=== PATIENT | male | born 1960 | race Caucasian/White ===

== ENCOUNTER → 2022-05-03 | Outpatient (CLI) | payer OTHER, SELFPAY ==
[2022-05-03 09:57] LABS: Erythrocyte Sedimentation Rate 6 mm/hr (0-20)
[2022-05-03 10:02] LABS: Absolute Neutrophil Count 6.3 X10^3/uL (2.0-7.7); Basophil# 0.04 X10^3/uL; Basophil% 0.5 % (0-1); Eosinophil# 0.07 X10^3/uL; Eosinophils% 0.8 % (0-5); Hematocrit 45.1 % (40-54); Hemoglobin 15.9 g/dL (13.0-16.5); Lymphocyte % 18.7 % (19-41); Mean Corp Hgb Conc 35.3 g/dL (32-36); Mean Corpuscular Volume 87.9 fL (80-94); Monocyte# 0.47 X10^3/uL; Monocyte% 5.5 % (0-10); NRBC Flagged by Analyzer 0 % (0-5); Neutrophil # 6.33 X10^3/uL (2.7-7.7); Neutrophil % 73.9 % (47-70); Platelet Count 187 K/mm3 (150-450); RBC Distribution Width CV 12.9 % (11.6-14.6); RBC Distribution Width SD 41.3 fl (35.1-43.9); Red Blood Count 5.13 M/mm3 (4.6-6.2); White Blood Count 8.6 K/mm3 (4.4-11.0)
[2022-05-03 10:26] LABS: ALB/GLOB Ratio 1.2 RATIO (0.9-2.4); AST(SGOT) 50 U/L (15-37); Alanine Aminotransfer ALT/SGPT 82 U/L (16-61); Albumin, Serum 4.5 g/dL (3.2-5.0); Alkaline Phosphatase 113 U/L (45-117); Anion Gap 8 (5-15); BUN 12 mg/dL (7-18); BUN/Creat Ratio 9.2 RATIO (10-20); CRP 3.52 mg/L (0.0-3.0); Calcium,Total 9.9 mg/dL (8.5-10.1); Chloride 98 mmol/L (98-107); EST Glomerular Filtration Rate 59 mL/min (>60); Est Glom Filt Rate - Afr Amer 72 mL/min (>60); Ferritin 495 ng/mL (26-388); Globulin 3.9 g/dL (2.2-4.2); Glucose 192 mg/dL (74-106); LDH 174 U/L (87-241); Potassium 4.6 mmol/L (3.5-5.1); Protein, Total 8.4 g/dL (6.4-8.2); Sodium Level 135 mmol/L (136-145); Thyroid Stim Hormone (TSH) 1.94 uIU/mL (0.358-3.74)
[2022-05-04 15:08] LABS: Endomysial Antibody IgA Negative (Negative)
[2022-05-04 18:09] LABS: Immunoglobulin A 346 mg/dL (61-437); t-Transglutaminase IgA <2 U/mL (0-3)
[2022-05-05 07:08] LABS: Anti-Centromere B Ab <0.2 AI (0.0-0.9); Anti-Chromatin <0.2 AI (0.0-0.9); Anti-Jo <0.2 AI (0.0-0.9); Anti-Scleroderma-70 AB <0.2 AI (0.0-0.9); RNP Ab <0.2 AI (0.0-0.9); SJOGREN'S Anti-SS-A test < 0.2 AI (0.0-0.9); SJOGREN'S Anti-SS-B test < 0.2 AI (0.0-0.9); Smith Ab <0.2 AI (0.0-0.9)
[2022-05-05 08:58] LABS: Anti-dsDNA Ab 1 IU/mL (0-9)
[2022-05-14 04:06] LABS: Albumin 4.6 g/dL (2.9-4.4); Alpha-1-Globulins 0.1 g/dL (0.0-0.4); Alpha-2-Globulins 0.9 g/dL (0.4-1.0); Cytoplasmic Ab (C-ANCA) <1:20 titer (Neg:<1:20); Gamma Globulin 0.7 g/dL (0.4-1.8); Immunoglobulin A 352 mg/dL (61-437); Immunoglobulin G 593 mg/dL (603-1613); Immunoglobulin M 183 mg/dL (20-172); PROEL- TOTAL PROTEIN 7.6 g/dL (6.0-8.5)
[2022-05-14 15:15] LABS: EBV Acute VCA IgM < 36.0 U/mL (0.0-35.9); EBV-VCA IgG > 600.0 U/mL (0.0-17.9)
[2022-05-14 15:16] LABS: CMV Antibody IgG < 0.60 U/mL (0.00-0.59); Immunoglobulin E 6 IU/mL (6-495); Perinuclear Ab (P-ANCA) <1:20 titer (Neg:<1:20)
== END | disposition home or self-care (01) ==
PROVIDERS: PCP Internal Medicine; Referring Provider Internal Medicine Gastroenterology; Visit Provider Internal Medicine Gastroenterology
DX: R19.7 Diarrhea, unspecified (principal)
CPT/HCPCS: 36415; 80053; 82728; 82784; 82785; 83516; 83615; 84165; 84443; 85025; 85652; 86140; 86225; 86235; 86255; 86256; 86334; 86644; 86664; 86665

== ENCOUNTER → 2022-05-06 | Outpatient (CLI) | payer OTHER, SELFPAY ==
[2022-05-13 17:37] LABS: Pancreatic Elastase, Fecal < 50 (>200)
[2022-05-18 18:33] LABS: Calprotectin, Stool 55 ug/g (0-120); Fats, Neutral Normal (.); Fats, Total Increased (.)
== END | disposition home or self-care (01) ==
LOC: LABSPEC 14:56
PROVIDERS: PCP Internal Medicine; Visit Provider Internal Medicine Gastroenterology
DX: R19.7 Diarrhea, unspecified (principal); K58.9 Irritable bowel syndrome, unspecified
CPT/HCPCS: 82274; 82653; 82705; 83630; 83993; 87493; 87506

== ENCOUNTER → 2022-06-18 | Outpatient (CLI) | payer OTHER, SELFPAY ==
[2022-06-18 10:55] LABS: Microalbumin,Random Urine 27.8 mg/L (NO RANGE EST.); Microalbumin:Creatinine Ratio 9.5 mg/g CRE (<30 mg/g CRE)
[2022-06-18 11:11] LABS: Absolute Lymphocyte Count 1.79 X10^3/uL (0.83-4.51); Absolute Neutrophil Count 5.4 X10^3/uL (2.0-7.7); Basophil# 0.03 X10^3/uL; Basophil% 0.4 % (0-1); Eosinophil# 0.08 X10^3/uL; Hematocrit 41.7 % (40-54); Hemoglobin 14.1 g/dL (13.0-16.5); Lymphocyte # 1.79 X10^3/ul (0.83-4.51); Lymphocyte % 22.9 % (19-41); Mean Corp Hgb Conc 33.8 g/dL (32-36); Mean Corpuscular Hgb 30.1 pg (27.0-32.0); Mean Corpuscular Volume 89.1 fL (80-94); Mean Platelet Vol. 10.2 fl (6.2-12.0); Monocyte# 0.46 X10^3/uL; Monocyte% 5.9 % (0-10); NRBC Flagged by Analyzer 0 % (0-5); Neutrophil # 5.41 X10^3/uL (2.7-7.7); Neutrophil % 69.3 % (47-70); Platelet Count 179 K/mm3 (150-450); RBC Distribution Width CV 13.6 % (11.6-14.6); RBC Distribution Width SD 44.2 fl (35.1-43.9); Red Blood Count 4.68 M/mm3 (4.6-6.2); White Blood Count 7.8 K/mm3 (4.4-11.0)
[2022-06-18 11:36] LABS: Hemoglobin A1c 8.7 % (3.8-5.6)
[2022-06-18 11:41] LABS: ALB/GLOB Ratio 1.1 RATIO (0.9-2.4); AST(SGOT) 33 U/L (15-37); Alanine Aminotransfer ALT/SGPT 73 U/L (16-61); Albumin, Serum 3.8 g/dL (3.2-5.0); Alkaline Phosphatase 91 U/L (45-117); Anion Gap 6 (5-15); BUN 13 mg/dL (7-18); BUN/Creat Ratio 10.6 RATIO (10-20); Calcium,Total 8.5 mg/dL (8.5-10.1); Chloride 104 mmol/L (98-107); Cholesterol 148 mg/dL (200); Creatinine, Serum 1.23 mg/dL (0.70-1.30); EST Glomerular Filtration Rate 63 mL/min (>60); Est Glom Filt Rate - Afr Amer 77 mL/min (>60); Globulin 3.4 g/dL (2.2-4.2); Glucose 220 mg/dL (74-106); High Density Lipoprotein 51 mg/dL; Potassium 3.5 mmol/L (3.5-5.1); Protein, Total 7.2 g/dL (6.4-8.2); Sodium Level 136 mmol/L (136-145); Thyroid Stim Hormone (TSH) 1.38 uIU/mL (0.358-3.74); Triglycerides 112 mg/dL; Very Low Density Lipoprotein 22 mg/dL (5-40)
== END | disposition home or self-care (01) ==
LOC: LAB 10:19
PROVIDERS: PCP Internal Medicine; Referring Provider Internal Medicine; Visit Provider Internal Medicine
DX: E11.9 Type 2 diabetes mellitus without complications (principal); I10 Essential (primary) hypertension; E78.00 Pure hypercholesterolemia, unspecified; K42.9 Umbilical hernia without obstruction or gangrene; F32.A Depression, unspecified
CPT/HCPCS: 36415; 80053; 80061; 82043; 82570; 83036; 84443; 85025

== ENCOUNTER 2022-10-13 09:00 | Day surgery (SDC) | payer OTHER, SELFPAY ==
[2022-10-13] VITALS (7 sets, daily range): BP systolic 88–134; BP diastolic 67–91; PULSE 85–95; RESP 18; TEMP 36–36.6; O2SAT 96–98; BMI 25.0
[2022-10-13] MEDS: Lactated Ringers 1,000 ML 15 ML IV (09:41)
[2022-10-13 09:50] LABS: Bedside Glucose 143 mg/dL (74-106)
--- NOTE | 2022-10-13 09:57 | HP.PCM_ITS ---
History and Physical Date of Admission: 10/13/22 JULY YI, is a 61 M who presents to the office today for 3 month f/u diarrhea. Capsule endoscopy showed bile induced enteritis. He is now taking colestipol 1 gram bid, no longer has diarrhea (except sometimes when he eats [employer]). No abdominal pain now. He was also found to have exocrine pancreatic insufficiency with fecal elastase <50; PERT was too expensive. No nausea, vomiting, dysphagia. Occas heartburn, no prior EGD. No melena or hematochezia. 06/2022: hgb a1c 8.7, fecal pancreatic elastase <50, positive stool occult blood, panel suggestive of Crohn's July established with this clinic 05.03.22 with referral from PCP for evaluation of intermittent diarrhea with pelvic/lower abdominal cramping (relieved with BM) 1-2 days a week for the last three years and feels it is trigger by foods, though triggers are not consistent but do seem to be linked to higher fat foods. PMH DMII; cholecystectomy 11.06.20 complicated by perforated liver ([facility]); appendectomy 1986; hyperlipidemia. CT abd/pel 11.21.20 with irregular intrahepatic fluid collection consistent with intrahepatic abscess ill-defined fluid collection in gallbladder fossa with surrounding inflammation; splenomegaly; small duodenal diverticulum; moderate stool burden. Colonoscopy 05.08.21 with outside facility finding 3, 3-5mm tubular adenoma polyps and sigmoid diverticulosis. ROS Const Constitutional: Positive for fatigue ENT ENT: No difficulty swallowing Cardio Cardiology: Positive for leg pain with exertion Gastro GI: No abdominal pain, belching, bloating, change in bowel habits, change in stool character, coffee ground emesis, constipation, cramping, diarrhea, heartburn, difficulty swallowing, feeling full early, excessive flatus, incontinent of stools, Vomiting blood/hematemesis, Blood in stool, loose stools, Black,tarry stools, nausea/dyspepsia, pain with swallowing, vomiting or other Musc Musculoskeletal: Positive for abnormal gait, joint pain, muscle weakness, numbness, stiffness, tingling, Arthritis, restless legs, leg pain at night and leg pain with exertion Skin Skin: No yellowing of the eye or itchy eyes Neuro Neurology: Positive for abnormal gait, dizziness, numbness, tingling and restless legs Psych Psychiatric: No anxiety and No depression Endo Endocrine: Positive for fatigue Aller/Imm Allergy/Immunologic: No itchy eyes Kendall/Lymp Hematologic/Lymphatic: No easy bleeding or easy bruising Exam Const General: cooperative and comfortable Nutritional Appearance: average body habitus Orientation: alert, awake and oriented x3 GI Inspection: normal to inspection Palpation: soft, no hepatosplenomegaly, no masses and nontender Quality Reporting Tobacco Screening (CMS 138) Smoking Status: Never smoker Assessment and Plan Assessment and Plan (1) Diarrhea: ?Status:?Chronic ?Plan: 61 yr old male with chronic diarrhea. Capsule endoscopy showed bile induced enteritis, so he was prescribed colestipol 1 gram bid, he no longer has diarrhea or abdominal pain. Pancreatic enzymes were too expensive so no treatment for EPI. Because his stool was heme positive, and hx colon polyps, and poor prep, we will get colonoscopy as well as EGD. Hx heartburn. Lab panel suggestive of Crohn's. Office f/u 2 wks later. (2) Occult blood positive stool: ?Status:?Acute ?Plan: see above (3) Exocrine pancreatic insufficiency: ?Status:?Acute ?Plan: see above ? ? ? Medications: Discontinued uxrmck-gldswznm-ojjuhji 40,000-126,000- 168,000 unit (Zenpep) ?? Discontinued Reason:? Cost Prohibitive ?take 1-2 with snacks and 2-3 with meals? 720 caps 3RF ? ? I have examined the patient and the H&P has been reviewed. There are no clinical changes since date of exam.
--- NOTE | 2022-10-13 10:30 | EGD_PTH ---
PATIENT: JULY YI LOC: [facility] U#:[id number] AGE/SX: 61/M ROOM: RE10/13/[address]: Dr. Bennie Carney DO : 1960 BED: DIS: 10/13/2022 SPEC #: [id number] RECD: 10/13/22 13:47 STATUS: JARETT SAVANNAH #: [id number] NADEGE: 10/13/22 10:[address]: Bennie Carney DEPT: SURGICAL PATHOLOGY RECD BY: Dorinda Tom ENTERED: 10/14/22 10:41 SP TYPE: EGD BIOPSY SHAYLA DR: Dr. Hali Flores MD Tissues: A - Duodenum, NOS B - Gastric mucous membrane C - Ileum, NOS D - COLON BIOPSY E - COLON BIOPSY F - Transverse colon Procedures: Surgery Specimen Level IV HEADER OPERATION: Colonoscopy, EGD ([facility]), biopsies, polypectomy PRE-OP DIAGNOSIS: Diarrhea TISSUE SUBMITTED: A ? Duodenum biopsy, B ? Gastric body biopsy, C ? Terminal ileum biopsy, D ? Random colon biopsy, E ? Hepatic flexure polyp, F ? Transverse polyp MICROSCOPIC DIAGNOSIS A. Duodenum, biopsy: No pathologic change. B. Gastric body, biopsy: Minimal chronic inflammation. See comment. C. Terminal ileum, biopsy: No pathologic change. D. Colon, random biopsy: No pathologic change. E. Colonic polyp at hepatic flexure, biopsy: Tubular adenoma. F. Transverse colon polyp, biopsy: Tubular adenoma. AM:noel 10/15/2022 COMMENT B. The results of immunohistochemistry for Helicobacter pylori will be reported separately ([id number]). MICROSCOPIC DESCRIPTION Slides are reviewed. GROSS DESCRIPTION A - Received in fixative is one container labeled with the patient's name and designated duodenum biopsy. The specimen consists of two irregular fragments of light diaz soft tissue that in aggregate measure 0.8 x 0.3 x 0.1 cm. The specimen is totally submitted in one cassette. B - Received in fixative is one container labeled with the patient's name and designated gastric body biopsy. The specimen consists of one irregular fragment of light diaz soft tissue that measures 0.5 x 0.5 x 0.1 cm. The specimen is totally submitted in one cassette. C - Received in fixative is one container labeled with the patient's name and designated terminal ileum biopsy. The specimen consists of two irregular fragments of light diaz soft tissue that in aggregate measure 0.6 x 0.3 x 0.1 cm. The specimen is totally submitted in one cassette. D - Received in fixative is one container labeled with the patient's name and designated random colon biopsy. The specimen consists of multiple irregular fragments of light diaz soft tissue that in aggregate measure 1.3 x 0.5 x 0.1 cm. The specimen is totally submitted in one cassette. E - Received in fixative is one container labeled with the patient's name and designated hepatic flexure polyp. The specimen consists of multiple irregular fragments of light diaz soft tissue that in aggregate measure 0.7 x 0.2 x 0.1 cm. The specimen is totally submitted in one cassette. F - Received in fixative is one container labeled with the patient's name and designated transverse polyp. The specimen consists of multiple irregular fragments of light diaz soft tissue that in aggregate measure 1.0 x 0.3 x 0.1 cm. The specimen is totally submitted in one cassette. / AM:noel 10/14/2022 TC:5 CPT: 16766 x6
--- NOTE | 2022-10-13 10:30 | IMM_PTH ---
PATIENT: JULY YI LOC: [facility] U#:[id number] AGE/SX: 61/M ROOM: RE10/13/[address]: Dr. Bennie Carney DO : 1960 BED: DIS: 10/13/2022 SPEC #: [id number] RECD: 10/14/22 14:06 STATUS: JARETT REQ #: [id number] NADEGE: 10/13/22 10:[address]: Bennie Carney DEPT: IMMUNOHISTOCHEMISTRY RECD BY: Nanci Pacheco ENTERED: 10/14/22 14:08 SP TYPE: IMMUNO OTHR DR: Dr. Hali Flores MD Tissues: B - Stomach, NOS Procedures: H Pylori (initial) PHYSICIAN & INSTITUTION [place] [id number] SPECIMEN INFORMATION: Tissue Source: B ? Gastric body Clinical Info: Diarrhea Specimen Number: [id number] CPT code: 30502 METHODOLOGY: Deparaffinized sections of prefer/formalin-fixed tissue or PAP/DQ stained slides are incubated with monoclonal/polyclonal antibodies/oligonucleotide probes. Localization is made via biotin free immunoperoxidase method. Appropriate controls are performed and reacted as expected. Results on target cell population are indicated in the following table: RESULTS: ANTIBODY / CLONE RESULT Block B H Pylori (polyclonal) negative These tests were developed and their performance characteristics determined by [facility]. They may not have been cleared or approved by the U.S. Food and Drug Administration. The FDA has determined that such clearance or approval is not necessary. The above immunohistochemical/dualISH markers are ordered and reviewed by the Pathologist. INTERPRETATION: B. Gastric body, biopsy: Negative for Helicobacter pylori organisms. AM:noel 10/15/2022
--- NOTE | 2022-10-13 11:50 | OP.EGD_ITS ---
Patient Name: Jose Casanova Procedure Date: 10/13/2022 11:21 AM Date of : 1960 Age: 61 Procedure: Upper GI endoscopy Indications: Epigastric abdominal pain, Functional Dyspepsia Providers: Bennie Carney DO Medicines: Monitored Anesthesia Care Patient Profile: This is a 61 year old male. Refer to note in patient chart for documentation of history and physical. Patient has symptoms of chronic epigastric abdominal pain and chronic dyspepsia. Complications: No immediate complications. Procedure: Pre-Anesthesia Assessment: - Prior to the procedure, a History and Physical was performed, and patient medications and allergies were reviewed. The risks and benefits of the procedure and the sedation options and risks were discussed with the patient. All questions were answered and informed consent was obtained. Patient identification and proposed procedure were verified by the physician in the pre-procedure area. Mental Status Examination: alert and oriented. Airway Examination: normal oropharyngeal airway and neck mobility. Respiratory Examination: clear to auscultation. CV Examination: normal. Prophylactic Antibiotics: The patient does not require prophylactic antibiotics. Prior Anticoagulants: The patient has taken no previous anticoagulant or antiplatelet agents. ASA Grade Assessment: II - A patient with mild systemic disease. After reviewing the risks and benefits, the patient was deemed in satisfactory condition to undergo the procedure. The anesthesia plan was to use monitored anesthesia care (MAC). Immediately prior to administration of medications, the patient was re-assessed for adequacy to receive sedatives. The heart rate, respiratory rate, oxygen saturations, blood pressure, adequacy of pulmonary ventilation, and response to care were monitored throughout the procedure. The physical status of the patient was re-assessed after the procedure. After obtaining informed consent, the endoscope was passed under direct vision. Throughout the procedure, the patient's blood pressure, pulse, and oxygen saturations were monitored continuously. The pediatric colonoscope was introduced through the mouth, and advanced to the second part of duodenum. The upper GI endoscopy was accomplished without difficulty. The patient tolerated the procedure well. Scope In: 11:28:55 AM Scope Out: 11:30:52 AM Total Procedure Duration Time 0 hours 1 minute 57 seconds Findings: The examined esophagus was normal. Patchy mildly erythematous mucosa without bleeding was found in the gastric body. Biopsies were taken with a cold forceps for histology. Verification of patient identification for the specimen was done. Estimated blood loss was minimal. Patchy mildly erythematous mucosa without active bleeding and with no stigmata of bleeding was found in the first portion of the duodenum. Biopsies were taken with a cold forceps for histology. Verification of patient identification for the specimen was done. Estimated blood loss was minimal. Impression: - Normal esophagus. - Erythematous mucosa in the gastric body. Biopsied. - Erythematous duodenopathy. Biopsied. Recommendation: - Discharge patient to home. - Resume previous diet. - Continue present medications. - Await pathology results. Procedure Code(s): --- Professional --- 05111, Esophagogastroduodenoscopy, flexible, transoral; with biopsy, single or multiple CPT copyright 2017 [employer]. All rights reserved. The codes documented in this report are preliminary and upon paper mill superintendent review may be revised to meet current compliance requirements. Bennie Carney DO 10/13/2022 11:50:38 AM This report has been signed electronically. Number of Addenda: 0 Note Initiated On: 10/13/2022 11:21 AM
--- NOTE | 2022-10-13 11:51 | OP.CCLET_ITS ---
10/13/2022 Hali Flores Re : Upper GI endoscopy procedure for Jose Casanova Dear Sandra This procedure was performed on Thursday, October 13, 2022. My impressions and recommendations are as follows: Impressions : - Normal esophagus. - Erythematous mucosa in the gastric body. Biopsied. - Erythematous duodenopathy. Biopsied. Recommendations : - Discharge patient to home. - Resume previous diet. - Continue present medications. - Await pathology results. My findings are described in the full procedure note, which is enclosed. If I can be of further assistance, please feel free to contact me at . Sincerely, Bennie Carney, 10/13/2022 11:50:38 AM This report has been signed electronically.
--- NOTE | 2022-10-13 11:55 | OP.COLON_ITS ---
Patient Name: Jose Casanova Procedure Date: 10/13/2022 11:31 AM Date of : 1960 Age: 61 Procedure: Colonoscopy Indications: Screening for colorectal malignant neoplasm Providers: Bennie Carney DO Medicines: Monitored Anesthesia Care Patient Profile: This is a 61 year old male. Refer to note in patient chart for documentation of history and physical. Patient has symptoms of chronic epigastric abdominal pain and chronic dyspepsia. Last Colonoscopy: date unknown. Unable to locate last colonoscopy report. Complications: No immediate complications. Procedure: Pre-Anesthesia Assessment: - Prior to the procedure, a History and Physical was performed, and patient medications and allergies were reviewed. The risks and benefits of the procedure and the sedation options and risks were discussed with the patient. All questions were answered and informed consent was obtained. Patient identification and proposed procedure were verified by the physician in the pre-procedure area. Mental Status Examination: alert and oriented. Airway Examination: normal oropharyngeal airway and neck mobility. Respiratory Examination: clear to auscultation. CV Examination: normal. Prophylactic Antibiotics: The patient does not require prophylactic antibiotics. Prior Anticoagulants: The patient has taken no previous anticoagulant or antiplatelet agents. ASA Grade Assessment: II - A patient with mild systemic disease. After reviewing the risks and benefits, the patient was deemed in satisfactory condition to undergo the procedure. The anesthesia plan was to use monitored anesthesia care (MAC). Immediately prior to administration of medications, the patient was re-assessed for adequacy to receive sedatives. The heart rate, respiratory rate, oxygen saturations, blood pressure, adequacy of pulmonary ventilation, and response to care were monitored throughout the procedure. The physical status of the patient was re-assessed after the procedure. After I obtained informed consent, the scope was passed under direct vision. Throughout the procedure, the patient's blood pressure, pulse, and oxygen saturations were monitored continuously. The colonoscope was introduced through the anus and advanced to the cecum, identified by appendiceal orifice and ileocecal valve. The colonoscopy was performed without difficulty. The patient tolerated the procedure well. The quality of the bowel preparation was good. Scope In: 11:32:05 AM Scope Withdrawal Time 0 hours 10 minutes 14 seconds Scope Out: 11:46:25 AM Total Procedure Duration Time 0 hours 14 minutes 20 seconds Findings: The perianal and digital rectal examinations were normal. Many small-mouthed diverticula were found in the sigmoid colon, splenic flexure and hepatic flexure. Two sessile polyps were found in the transverse colon and hepatic flexure. The polyps were 1 to 2 mm in size. These polyps were removed with a hot snare. Resection and retrieval were complete. Verification of patient identification for the specimen was done. Estimated blood loss was minimal. An area of mildly congested mucosa was found in the sigmoid colon, in the descending colon, at the splenic flexure and in the ascending colon. Biopsies were taken with a cold forceps for histology. The terminal ileum appeared normal. Biopsies were taken with a cold forceps for histology. Verification of patient identification for the specimen was done. Estimated blood loss was minimal. Non-bleeding internal hemorrhoids were found during retroflexion. The hemorrhoids were Grade I (internal hemorrhoids that do not prolapse). Impression: - Diverticulosis in the sigmoid colon, at the splenic flexure and at the hepatic flexure. - Two 1 to 2 mm polyps in the transverse colon and at the hepatic flexure, removed with a hot snare. Resected and retrieved. - Congested mucosa in the sigmoid colon, in the descending colon, at the splenic flexure and in the ascending colon. Biopsied. - The examined portion of the ileum was normal. Biopsied. - Non-bleeding internal hemorrhoids. Recommendation: - Repeat colonoscopy in 5 years for surveillance. - Continue present medications. Procedure Code(s): --- Professional --- 67278, Colonoscopy, flexible; with removal of tumor(s), polyp(s), or other lesion(s) by snare technique 69098, 59, Colonoscopy, flexible; with biopsy, single or multiple CPT copyright 2017 [employer]. All rights reserved. The codes documented in this report are preliminary and upon travel journalist review may be revised to meet current compliance requirements. Bennie Carney DO 10/13/2022 11:54:35 AM This report has been signed electronically. Number of Addenda: 0 Note Initiated On: 10/13/2022 11:31 AM
--- NOTE | 2022-10-13 11:55 | OP.CCLET_ITS ---
10/13/2022 Hali Flores Re : Colonoscopy procedure for Jose Casanova Dear Sandra This procedure was performed on Thursday, October 13, 2022. My impressions and recommendations are as follows: Impressions : - Diverticulosis in the sigmoid colon, at the splenic flexure and at the hepatic flexure. - Two 1 to 2 mm polyps in the transverse colon and at the hepatic flexure, removed with a hot snare. Resected and retrieved. - Congested mucosa in the sigmoid colon, in the descending colon, at the splenic flexure and in the ascending colon. Biopsied. - The examined portion of the ileum was normal. Biopsied. - Non-bleeding internal hemorrhoids. Recommendations : - Repeat colonoscopy in 5 years for surveillance. - Continue present medications. My findings are described in the full procedure note, which is enclosed. If I can be of further assistance, please feel free to contact me at . Sincerely, Bennie Carney, 10/13/2022 11:54:35 AM This report has been signed electronically.
== END 2022-10-13 12:52 | disposition home or self-care (01) ==
LOC: EN 09:03 → AC 09:04
PROVIDERS: PCP Internal Medicine; Referring Provider Internal Medicine; Visit Provider Internal Medicine Gastroenterology
PROC: 0DJD8ZZ Inspection of Lower Intestinal Tract, Via Natural or Artificial Opening Endoscopic (ICD-10-PCS; CPT 45378; principal; 2022-10-13 10:25)
DX: Z12.11 Encounter for screening for malignant neoplasm of colon (principal); E11.9 Type 2 diabetes mellitus without complications; K57.30 Diverticulosis of large intestine without perforation or abscess without bleeding; Z86.010 Personal history of colon polyps; K64.0 First degree hemorrhoids; Z90.49 Acquired absence of other specified parts of digestive tract; K29.50 Unspecified chronic gastritis without bleeding; K86.81 Exocrine pancreatic insufficiency; D12.3 Benign neoplasm of transverse colon; E78.00 Pure hypercholesterolemia, unspecified
CPT/HCPCS: 45385; 43239; 45380; 82962; 88305; 88342; J7120; J2405